=== PATIENT | female | born 1945 | race Caucasian/White ===

== ENCOUNTER 2019-04-01 12:00 | Day surgery (SDC) | payer MEDICARE, OTHER ==
[2019-04-01] MEDS ORDERED: Depo-Medrol 40 MG/ML IM ONE (12:01)
[2019-04-01] MEDS ORDERED: Sodium Chloride 0.9% 10 ML FLUSH Syringe IJ ONE (12:01)
[2019-04-01] MEDS ORDERED: Xylocaine 1% Vial 30 ML PF IJ ONE (12:01)
--- NOTE | 2019-04-01 14:11 | XRAY ---
Indication: Lumbar BAILEY. Intraoperative fluoroscopy was provided for 17 seconds. 2 digital spot images submitted for interpretation demonstrates midline posterior needle tip just posterior to the L4-L5 interspace. Small amount of contrast injected for needle tip placement. Correlate with intraoperative findings/report.
--- NOTE | 2019-04-01 14:11 | XRAY ---
17 seconds fluoroscopy time in surgery for lumbar BAILEY.
== END 2019-04-01 13:46 | disposition home or self-care (01) ==
LOC: SDC-PAIN 12:00
PROVIDERS: ATTEND Psychiatry & Neurology Pain Medicine
DX: M54.16 Radiculopathy, lumbar region (principal); J45.909 Unspecified asthma, uncomplicated; F41.8 Other specified anxiety disorders; Z85.3 Personal history of malignant neoplasm of breast; M41.9 Scoliosis, unspecified; M85.80 Other specified disorders of bone density and structure, unspecified site; Z79.899 Other long term (current) drug therapy
CPT/HCPCS: 62323; 72100; 77003; J1030; J2001; Q9966

== ENCOUNTER 2019-04-22 14:53 | Day surgery (SDC) | payer MEDICARE, OTHER ==
[2019-04-22] MEDS ORDERED: Sodium Chloride 0.9(Preservative Free) 10 ML IJ ONE (14:54)
[2019-04-22] MEDS ORDERED: Depo-Medrol 40 MG/ML IM ONE (14:54)
[2019-04-22] MEDS ORDERED: Xylocaine 1% Vial 30 ML PF IJ ONE (14:54)
--- NOTE | 2019-04-22 16:30 | XRAY ---
Indication: Lumbar BAILEY. Intraoperative fluoroscopy was provided for 16 seconds. 2 digital spot images submitted for interpretation demonstrates midline posterior needle tip just posterior to the L4-L5 interspace. Small amount of contrast injected for needle tip placement. Correlate with intraoperative findings/report.
--- NOTE | 2019-04-22 16:37 | XRAY ---
16 seconds of fluoroscopy was used in surgery for a lumbar BAILEY.
== END 2019-04-22 16:20 | disposition home or self-care (01) ==
LOC: SDC-PAIN 14:53
PROVIDERS: ATTEND Psychiatry & Neurology Pain Medicine
DX: M54.16 Radiculopathy, lumbar region (principal); Z79.899 Other long term (current) drug therapy; M54.5 Low back pain; M41.9 Scoliosis, unspecified
CPT/HCPCS: 62323; 72100; 77003; J1030; J2001; Q9966

== ENCOUNTER 2019-05-06 11:28 | Day surgery (SDC) | payer MEDICARE, OTHER ==
[2019-05-06] MEDS ORDERED: Sodium Chloride 0.9(Preservative Free) 10 ML IJ ONE (11:29)
[2019-05-06] MEDS ORDERED: Xylocaine 1% Vial 30 ML PF IJ ONE (11:29)
[2019-05-06] MEDS ORDERED: Depo-Medrol 40 MG/ML IM ONE (11:29)
--- NOTE | 2019-05-06 14:19 | XRAY ---
Indication: Lumbar BAILEY. Intraoperative fluoroscopy was provided for 16 seconds. 2 digital spot images submitted for interpretation demonstrates midline posterior needle tip projecting just posterior to the L4-L5 interspace. Small amount of contrast injected for needle tip placement. Correlate with intraoperative findings/report.
--- NOTE | 2019-05-06 14:23 | XRAY ---
16 seconds fluoroscopy time in surgery for lumbar BAILEY.
== END 2019-05-06 13:18 | disposition home or self-care (01) ==
LOC: SDC-PAIN 11:28
PROVIDERS: ATTEND Psychiatry & Neurology Pain Medicine
DX: M54.16 Radiculopathy, lumbar region (principal); F41.8 Other specified anxiety disorders; J45.909 Unspecified asthma, uncomplicated; Z85.3 Personal history of malignant neoplasm of breast; M41.9 Scoliosis, unspecified; M85.80 Other specified disorders of bone density and structure, unspecified site; Z79.899 Other long term (current) drug therapy
CPT/HCPCS: 62323; 72100; 77003; J1030; J2001; Q9966

== ENCOUNTER 2019-08-12 10:35 | Day surgery (SDC) | payer MEDICARE, OTHER ==
[2019-08-12] MEDS ORDERED: Depo-Medrol 40 MG/ML IM ONE (10:36)
[2019-08-12] MEDS ORDERED: Xylocaine 1% Vial 30 ML PF IJ ONE (10:36)
[2019-08-12] MEDS ORDERED: Sodium Chloride 0.9(Preservative Free) 10 ML IJ ONE (10:36)
--- NOTE | 2019-08-12 14:05 | XRAY ---
Indication: Left L4-S1 BAILEY. Intraoperative fluoroscopy was provided for 22 seconds. 4 digital spot images submitted for interpretation demonstrates needle tips projecting over the expected course of the left L3 and L4 nerve roots. Small amount of contrast injected for needle tip placement. Correlate with intraoperative findings/report.
--- NOTE | 2019-08-12 14:11 | XRAY ---
22 seconds fluoroscopy time in surgery for left L4-S1 transforaminal BAILEY.
== END 2019-08-12 12:14 | disposition home or self-care (01) ==
LOC: SDC-PAIN 10:35
PROVIDERS: ATTEND Psychiatry & Neurology Pain Medicine
DX: M54.16 Radiculopathy, lumbar region (principal); F41.8 Other specified anxiety disorders; Z85.3 Personal history of malignant neoplasm of breast; M85.80 Other specified disorders of bone density and structure, unspecified site; J45.909 Unspecified asthma, uncomplicated; Z79.899 Other long term (current) drug therapy
CPT/HCPCS: 64493; 64494; 72100; 77003; J1030; J2001; Q9966

== ENCOUNTER 2022-07-08 22:53 | Emergency (ER) | payer MEDICARE ==
--- NOTE | 2022-07-08 23:06 | ERPHSYRPT ---
- History of Present Illness Time Seen by Provider: 07/08/22 23:05 Source: patient, family Exam Limitations: no limitations Physician History: A large pill is stuck in her esophagus, no airway issues. Timing/Duration: today Severity: moderate Modifying Factors: Improves With: nothing Associated Symptoms: nausea Allergies/Adverse Reactions: bupropion [From Wellbutrin] Adverse Reaction (Mild, Verified 07/08/22 23:07) " out of it" sertraline [From Zoloft] Adverse Reaction (Mild, Verified 07/08/22 23:07) " out of it" Home Medications: Albuterol Sulfate [Proair Hfa] 8.5 gm IH UD 04/14/21 [History] Fluconazole [Diflucan] 150 mg PO UD 04/14/21 [History] Fluticasone Propionate [Flovent Hfa] 1 puff IH BID 04/14/21 [History] Metoprolol Tartrate 50 mg [Lopressor 50 MG] 25 mg PO BID 04/14/21 [History] Multivit-Min/Iron/Folic/Lutein [Multivitamin Women 50 Plus Tab] 1 each PO DAILY 04/14/21 [History] Venlafaxine HCl [Venlafaxine HCl ER] 150 mg PO DAILY 04/14/21 [History] Digoxin 0.125 mg Tablet [Lanoxin 0.125MG TABLET] 0.125 mg PO DAILY 04/18/22 [History] Lansoprazole 30 mg PO DAILY 04/18/22 [History] - Review of Systems Constitutional: No Symptoms Eyes: No Symptoms Ears, Nose, & Throat: No Symptoms Respiratory: No Symptoms Cardiac: No Symptoms Abdominal/Gastrointestinal: No Symptoms Genitourinary Symptoms: No Symptoms Musculoskeletal: No Symptoms Skin: No Symptoms Neurological: No Symptoms Psychological: No Symptoms Endocrine: No Symptoms Hematologic/Lymphatic: No Symptoms Immunological/Allergic: No Symptoms All Other Systems: Reviewed and Negative - Past Medical History Pertinent Past Medical History: Yes Neurological History: No Pertinent History ENT History: No Pertinent History Cardiac History: Arrhythmia, Other Respiratory History: Asthma Endocrine Medical History: No Pertinent History Musculoskeletal History: Arthritis, Osteoporosis GI Medical History: GERD History: No Pertinent History Psycho-Social History: Depression Female Reproductive Disorders: Breast Cancer Other Medical History: leaking heart valves. right breast cancer with lumpectomy and radiation - Past Surgical History Past Surgical History: Yes Neuro Surgical History: No Pertinent History Cardiac: No Pertinent History Respiratory: No Pertinent History Gastrointestinal: No Pertinent History Genitourinary: No Pertinent History Musculoskeletal: No Pertinent History Female Surgical History: Lumpectomy Other Surgical History: right breast lumpectomy - Social History Smoking Status: Never smoker Drug Use: none - Nursing Vital Signs Nursing Vital Signs: Initial Vital Signs Temperature 97.7 F 07/08/22 22:55 Pulse Rate 76 07/08/22 22:55 Respiratory Rate 18 07/08/22 22:55 Blood Pressure 177/94 07/08/22 22:55 O2 Sat by Pulse Oximetry 94 L 07/08/22 22:55 Pain Scale Pain Intensity 9 - Physical Exam General Appearance: mild distress, alert, anxiety Eye Exam: PERRL/EOMI Ears, Nose, Throat Exam: normal ENT inspection Neck Exam: normal inspection Respiratory Exam: normal breath sounds, lungs clear Cardiovascular Exam: regular rate/rhythm, normal heart sounds Gastrointestinal/Abdomen Exam: soft, normal bowel sounds Pelvic Exam: not done Rectal Exam: not done Back Exam: normal inspection Extremity Exam: normal inspection Neurologic Exam: alert, oriented x 3 Skin Exam: normal color, warm SpO2 Interpretation: normal SpO2: 94 O2 Delivery: Room Air - Course Nursing assessment & vital signs reviewed: Yes Ordered Tests: Medication Summary Discontinued Medications Generic Name Dose Route Start Last Admin Trade Name Michael PRN Reason Stop Dose Admin Glucagon 1 mg 07/08/22 23:09 07/08/22 23:14 Glucagon 1 Mg/Vial Vial IM 07/08/22 23:10 1 mg STAT ONE Administration Glucagon Confirm 07/08/22 23:13 Glucagon 1 Mg/Vial Vial Administered 07/08/22 23:14 Dose 1 mg .ROUTE .STK-MED ONE Ondansetron HCl 4 mg 07/08/22 23:07 07/08/22 23:14 Zofran 4 Mg/Udtablet Orally Disintegrating PO 07/08/22 23:08 4 mg STAT ONE Administration Ondansetron HCl Confirm 07/08/22 23:12 Zofran 4 Mg/Udtablet Orally Disintegrating Administered 07/08/22 23:13 Dose 4 mg .ROUTE .STK-MED ONE - Progress Progress: improved Progress Note: 07/08/22 23:44 Gave her zofran and glucagon, felt better, wants to go home. Counseled pt/family regarding: diagnosis, need for follow-up Medical Desision Making - Independent Historian Additional History obtained from: Spouse - Departure Departure Disposition: Home Clinical Impression: Esophageal foreign body Qualifiers: Encounter type: initial encounter Qualified Code(s): T18.108A - Unspecified foreign body in esophagus causing other injury, initial encounter Condition: Stable Critical Care Time: No Referrals: HUNTER GUEVARA [Primary Care Provider] - Follow up/PCP as directed Instructions: Swallowed Objects, Adult (DC) Additional Instructions: Be careful with the size of pills or food that you swallow.
[2022-07-08] MEDS ORDERED: ZOFRAN ODT 4 MG PO ONE (23:07)
[2022-07-08] MEDS ORDERED: GlucaGen 1 MG IM ONE (23:09)
[2022-07-08] MEDS ORDERED: ZOFRAN ODT 4 MG ONE (23:12)
[2022-07-08] MEDS ORDERED: GlucaGen 1 MG ONE (23:13)
[2022-07-08 23:53] VITALS: BP 168/93; PULSE 70; O2SAT 95
== END 2022-07-08 23:54 | disposition home or self-care (01) ==
LOC: ED 22:53
DX: T18.198A Other foreign object in esophagus causing other injury, initial encounter (principal); Z79.899 Other long term (current) drug therapy
CPT/HCPCS: 96372; 99283; J1610; Q0162